=== PATIENT | female | born 1975 | race Caucasian/White ===

== ENCOUNTER → 2018-12-27 10:23 | Outpatient (CLI) | payer OTHER ==
[~2018-12-27 10:23] MED LIST: DOXYCYCLINE HY100 M3 PO; Tylenol #3 PO
== END | disposition home or self-care (01) ==
LOC: LAB 10:23
DX: Z01.810 Encounter for preprocedural cardiovascular examination (principal)

== ENCOUNTER 2018-12-28 05:58 | Day surgery (SDC) | payer OTHER ==
[2018-12-28] MEDS ORDERED: DOXYCYCLINE HY100 M3 PO (08:23)
[2018-12-28] MEDS ORDERED: Tylenol #3 PO (08:23)
== END 2018-12-28 14:10 | disposition home or self-care (01) ==
LOC: CIR.AMB 05:58
DX: N84.0 Polyp of corpus uteri (principal); D25.0 Submucous leiomyoma of uterus

== ENCOUNTER 2021-04-24 07:00 | Inpatient (IN) | payer OTHER ==
[~2021-04-24] VITALS: Ht 170.2 cm; Wt 72.6 kg
[2021-04-24] MEDS ORDERED: ZYRTEC10 M3 PO (09:08)
[2021-04-30] MEDS ORDERED: CLOTRIMAZOLE-BE15 G1 (11:20)
[2021-05-01] MEDS ORDERED: Tylenol #3 PO (08:50)
[2021-05-01] MEDS ORDERED: TYLENOL325 MG PO (10:01)
== END 2021-05-01 12:54 | disposition home or self-care (01) | DRG 743 ==
LOC: O/R 04-30 06:10 → OB/GYN 04-30 07:00 → SURG-SUITE 04-30 16:39
PROVIDERS: ADMIT Obstetrics & Gynecology; ATTEND Obstetrics & Gynecology
PROC: 0UQF7ZZ Repair Cul-de-sac, Via Natural or Artificial Opening (ICD-10-PCS; 2021-04-30)
PROC: 0USG7ZZ Reposition Vagina, Via Natural or Artificial Opening (ICD-10-PCS; 2021-04-30)
PROC: 0TJB8ZZ Inspection of Bladder, Via Natural or Artificial Opening Endoscopic (ICD-10-PCS; 2021-04-30)
PROC: 0UT97ZZ Resection of Uterus, Via Natural or Artificial Opening (ICD-10-PCS; principal; 2021-04-30 07:00)
DX: N72 Inflammatory disease of cervix uteri (principal); N81.11 Cystocele, midline; N80.0 Endometriosis of uterus; N84.0 Polyp of corpus uteri; D25.0 Submucous leiomyoma of uterus; D25.1 Intramural leiomyoma of uterus; D25.2 Subserosal leiomyoma of uterus; D50.0 Iron deficiency anemia secondary to blood loss (chronic); N92.0 Excessive and frequent menstruation with regular cycle